=== PATIENT | male | born 1985 | race Caucasian/White ===

== ENCOUNTER 2016-06-15 13:03 | Emergency (ER) | payer OTHER ==
[2016-06-15 13:03] VITALS: BP 150/100; PULSE 117; RESP 22; O2SAT 97
[~2016-06-15 13:03] MED LIST: HYDR-4003 PO; NPR500T PO; VALA100026 PO
[2016-06-15] MEDS ORDERED: Succinylcholine Chloride 20 mg/mL 5 mL Inj ONE (13:04)
[2016-06-15] MEDS ORDERED: Propofol 10,000 mCg/mL 20 mL Inj ONE (13:04)
[2016-06-15] MEDS ORDERED: Atropine 1 mg/10 mL (Code) Syringe ONE (13:04)
[2016-06-15] MEDS ORDERED: 0.9% Sodium Chloride 1,000 ML IV ONE (13:07)
--- NOTE | 2016-06-15 13:07 | ED.REPORT ---
HPI-Seizure Date of Service Jun 15, 2016 ED Provider: Omkar Reyna DO Patient is a 31 year old male with a history of seizures and who is known to be medication non-compliant presents to the ED via EMS s/p having 2 witnessed seizures at home. Since EMS responded, he had not awoken. He arrived in status with sinus tachycardia with a rate of 125. He was given 5mg versed IV by EMS at 1255. He has been intubated before similar symptoms. He is known to use THC to self medicate and has not taken medication for his seizures in several years. His last seizure before today was several years ago. Family reports that all morning he was saying he doesn't feel right and was very nauseous. His first seizure was at 1150 am and he woke up briefly before having another seizure at 1218 pm. He hit his head during his first seizure. Nursing Notes Stated Complaint: SEIZURES Chief Complaint: Seizure Nursing Notes Reviewed: Yes Allergies: Coded Allergies: No Known Allergies (Verified , 10/10/15) Scheduled Valacyclovir (Valacyclovir) 1,000 Mg Tablet 1,000 MG PO TID Scheduled PRN Hydrocodone-Acetaminophen 5-325 mg (Hydrocodone-Acetaminophen 5-325 mg) 1 Each Tablet 1-2 TABLET PO QID PRN PRN For Pain Naproxen (Naproxen) 500 Mg Tab 500 MG PO BID PRN PRN For Pain General Time Seen by Provider: 13:04 Chief Complaint Chief Complaint: Seizure, generalized Hx Obtained From: Other family..., EMS Unable to Obtain Hx: Patient condition Arrived By: Ambulance Similar Sx Previous: Yes Past Medical History Past Medical History Notes: Medication noncompliant Past Medical History Seizures- developed as an adult Past Surgical History Dental surgery Smoking History Current Every Day Smoker Social History Alcohol Use: Denies alcohol use Drug Use: Denies drug use, THC Ambulatory Status Independent Review of Systems Unable to Obtain ROS Patient condition Physical Exam Initial Vital Signs Vital Signs (First) Date Time Temp Pulse Resp B/P Pulse Ox O2 Delivery O2 Flow Rate FiO2 06/15/16 13:03 36.7 117 22 150/100 97 Nasal Cannula 2 Initial VS: Reviewed, Vital signs abnormal Extremities: No swelling Skin: Warm, Dry Alertness: Positive: Unresponsive Neck: Atraumatic Respiratory / Chest: Atraumatic tachypneic Heart Rate / Rhythm: Positive: Tachycardia Mental Status: Positive: Unresponsive No response to painful stimuli GCS 3 Head / Eyes: Normocephalic Fixed pupils with left lateral gaze Jaw locked upon arrival. Back: Atraumatic Interpretation & Diagnostics Lab Results Interpretation Result Diagram: 06/15/16 1318 06/15/16 1318 Test 06/15/16 13:18 06/15/16 14:16 White Blood Count 17.4th/mm3 (3.8-10.1) Red Blood Count 5.19mil/mm3 (4.40-5.80) Hemoglobin 16.1g/dL (13.8-17.2) Hematocrit 49.5% (41.0-50.0) Mean Corpuscular Volume 95.4fL (81-100) Mean Corpuscular Hemoglobin 31.0pg (27.0-35.0) Mean Corpuscular Hemoglobin Concent 32.5% (32.0-37.0) Red Cell Distribution Width 12.0% (12.3-15.4) Platelet Count 400bil/L (150-400) Neutrophils (%) (Auto) 45.1% (40-74) Lymphocytes (%) (Auto) 38.7% (14-46) Monocytes (%) (Auto) 11.0% (4-12) Eosinophils (%) (Auto) 2.9% (0-5) Basophils (%) (Auto) 0.9% (0-3) Sodium Level 139mEq/L (134-144) Potassium Level 4.1mEq/L (3.5-5.2) Chloride Level 94mEq/L (97-108) Carbon Dioxide Level 6mmol/L (18-29) Blood Urea Nitrogen 11mg/dL (6-20) Creatinine 1.00mg/dL (0.76-1.27) Estimat Glomerular Filtration Rate 93mL/min (>59) Glucose Level 176mg/dL (60-99) Calcium Level 9.7mg/dL (8.5-10.1) Total Bilirubin 1.0mg/dL (0.0-1.2) Aspartate Amino Transf (AST/SGOT) 34U/L (0-50) Alanine Aminotransferase (ALT/SGPT) 19U/L (0-44) Alkaline Phosphatase 66U/L (25-150) Total Protein 7.6g/dL (6.4-8.4) Albumin 5.0g/dL (3.4-5.0) Hold Stein Top Tube Received (Received) Alcohol, Quantitative < 10mg/dL (0-10) Hold Urine Received (Received) Lab Results Interpretation: urine tox: positve for benzodiazepines, marijuana, and oxycodone. ECG Interpretation ECG Interpretation: Sinus rate 90 Left axis deviaton Time: 14:39 Interpreted by: ED physician Rhythm Strip Interpretation : Rhythm Strip Interpretation: Sinus tachycardia rate 125 Time: 13:14 Rhythm Strip Interpretation: Interpreted by me, Sinus tachycardia ABG Interpretation ABG Interpretation: pH 7.310 pCO2 44 pO2 176.0 cHCO3- 21.3 cBase -4.4 Exam Performed by: Allied health pract Exam Interpreted by: ED physician X-Ray Chest Interpretation Chest Xray Interpretation: IMPRESSION: Endotracheal tube at the thoracic inlet as above. NG tube with distal sidehole the gastroesophageal junction as above. Dictated by: Vesta Pineda M.D. on 06/15/2016 at 13:38 Approved by: Vesta Pineda M.D. on 06/15/2016 at 13:39 View: Portable, 1 view Interpretation / Wet Read by: Interpret - Radiologist Chest Xray Interpretation: IMPRESSION: Advanced endotracheal tube. Unchanged NG tube. No acute pulmonary findings. Dictated by: Vesta Pineda M.D. on 06/15/2016 at 14:10 Approved by: Vesta Pineda M.D. on 06/15/2016 at 14:10 View: Portable, 1 view Interpretation / Wet Read by: Interpret - Radiologist Procedures Intubation Intubation Procedure: intubation done by receiving barn custodian under my direct supervison Tube was initially at 22cm and advanced to 25 Time: 13:15 Procedure Performed by: Allied health pract Consent / Setup / Site Prep: No consent - emergent, Time-out performed, Oxygen administered, Pulse oximeter applied, monitoring analyst applied, Hand hygiene observed Patient Position: Sniff position Blade / ET Tube / Route: Route: oral Procedural Sedation/Analgesia: Sedation: Propofol Neuromuscular Agent: Succinylcholine ET Confirmation: Direct visualization, BS equal Secured / Marked: ET tube device, Tube marked at ___ cm (25) Complications: None Post-Procedure: Condition improved, Tolerated procedure well, Patient stable Re-Eval/Medical Decision Med Decision/Clinical Course Status epilepticus upon arrival. Patient has been given multiple doses of IV Versed, Ativan, and sedated with propofol and succinylcholine, IV fosphenytoin 1400 mg, IV Keppra 1500 mg, propofol drip for sedation, Tavo-Synephrine for blood pressure management, normal saline 1500 mL. Re-Evaluation/Progress #1: Time of Eval: 13:31 Re-Evaluation/Progress Note: pupils fixed and unreactive but midline rhythmic fine seizure activity in all 4 extremities. Re-Evaluation/Progress #2: Time of Eval: 13:35 )( Re-Eval Neurologic Exam: Unresponsive Re-Evaluation/Progress Note: Discussed patient's history with patient's family. Re-Evaluation/Progress #3: Time of Eval: 13:47 )( Re-Eval Neurologic Exam: Unresponsive Re-Evaluation/Progress Note: Still having rhythmic fine seizure activity Re-Evaluation/Progress #4: Time of Eval: 14:00 )( Re-Eval Neurologic Exam: Unresponsive Re-Evaluation/Progress Note: No visual signs on seizing. Family reports that every once in awhile he takes oxycodone that he was prescribed when he was seen for stress headaches. "He was also prescribed a benzo with caffeine in it". They also report that in the past when he comes out of seizures he is very agitated. Re-Evaluation/Progress #5: Time of Eval: 14:16 )( Re-Eval Neurologic Exam: Unresponsive Re-Evaluation/Progress Note: Rechecked patient. Pressure is still around 88. Re-Evaluation/Progress #6: Time of Eval: 14:39 )( Re-Eval Neurologic Exam: Unresponsive Re-Evaluation/Progress Note: Informed family of plan to transfer to [facility] neurolog[facility]. Patient's family understands and agrees with plan. All questions addressed at this time. Consultation : Consulted With: Neurology Call Returned at: 13:31 Note: Dr. Weiner and [facility] neurology accepts patient transfer. Counseled Regarding: Diagnosis, Lab results, Need for transfer Discharge & Departure Impression: Primary Impression: Status epilepticus Disposition: Transfer, Acute Care Facility Receiving Hospital: [facility] Transfer Accepted: Yes Transfer Accepted at: 14:31 Transfer Reason: Higher level of care Spoke with: Specialty physician Patient Status: Stable for transfer Patient Informed: Unable Referrals: Juan A Rogers DO (PCP) Crit Care Except Billable Proc Time Spent: 75-104 minutes Services Performed: Patient management by me, Time spent at bedside, Reviewing test results Critical Care Notes: See MDM Scribe Attestation Portions of this note were transcribed by Pablo Fields. I, Dr. Reyna personally performed the history, physical exam and medical decision-making; I reviewed and confirmed the accuracy of the information in the transcribed note. Signed by: Pablo Fields 06/15/16, 3259 copies to: Juan A Rogers Timothy S DO Jun 15, 2016 13:07 PABLO FIELDS Jun 15, 2016 13:54
[2016-06-15] MEDS ORDERED: Fosphenytoin Inj 100 mgPE in 0.9% Sodium Chloride 50 ML IV ONE (13:10)
[2016-06-15 13:16] VITALS: PULSE 156; RESP 23; O2SAT 99
[2016-06-15 13:22] VITALS: BP 137/93; PULSE 78; RESP 11; O2SAT 100
[2016-06-15] MEDS ORDERED: Succinylcholine Chloride 20 mg/mL 5 mL Inj IVPUSH ONE (13:25)
[2016-06-15] MEDS ORDERED: FOSPHENYTOIN IV ONE ×2 (13:25→13:40)
[2016-06-15] MEDS ORDERED: Propofol 10 mg/mL 20 mL Inj IVPUSH ONE (13:25)
[2016-06-15] MEDS ORDERED: SODIUM CHLORIDE 0.9% IV ONE ×2 (13:25→13:40)
[2016-06-15] MEDS ORDERED: MGPE IV ONE ×2 (13:25→13:40)
[2016-06-15 13:29] LABS: BASOPHILS % (AUTO) 0.9 % (0-3); EOSINOPHILS % (AUTO) 2.9 % (0-5); Mean Corpuscular Volume 95.4 fL (81-100); NEUTROPHILS % (AUTO) 45.1 % (40-74); Platelet Count 400 bil/L (150-400)
[2016-06-15] MEDS ORDERED: Midazolam 5 mg/mL 10 mL Inj IV PRN (13:40)
--- NOTE | 2016-06-15 13:41 | DRSVH ---
PROCEDURE: X-RAY CHEST ONE VIEW, PORTABLE ([id number]) INDICATIONS: post intubation TECHNIQUE: One view of the chest was acquired. COMPARISON: None. FINDINGS: Surgical changes and devices: The endotracheal tube is 8.6 cm above the david. An NG tube is present , the distal sidehole of which is likely at the gastroesophageal junction. Lungs and pleura: No pleural effusions or pneumothorax. Lungs are clear. Mediastinum: Mediastinal contours appear normal. Heart size is normal. Bones and chest wall: No suspicious bony lesions. Overlying soft tissues appear unremarkable. IMPRESSION: Endotracheal tube at the thoracic inlet as above. NG tube with distal sidehole the gastro esophageal junction as above. Dictated by: Vesta Pineda M.D. on 06/15/2016 at 13:38 Approved by: Vesta Pineda M.D. on 06/15/2016 at 13:39
[2016-06-15] MEDS: Propofol Inj 1,000,000 MCG in IV Premix 1 EACH IV SCH ×4 (13:46→15:30)
[2016-06-15] MEDS ORDERED: levETIRAcetam Inj 1,500 MG in Dextrose 5% 100 ML IV ONE (13:50)
[2016-06-15] MEDS ORDERED: 0.9% Sodium Chloride 1,000 ML IV SCH (14:00)
[2016-06-15 14:02] VITALS: BP 85/44; PULSE 106; RESP 22; O2SAT 100
--- NOTE | 2016-06-15 14:12 | DRSVH ---
PROCEDURE: X-RAY CHEST ONE VIEW, PORTABLE ([id number]) INDICATIONS: evaluate Endo Tracheal Tube placement TECHNIQUE: One view of the chest was acquired. COMPARISON: None. FINDINGS: Surgical changes and devices: The endotracheal tube is 4.7 cm above the david. As before, the NG tub e distal side hole is at the gastroesophageal junction. Lungs and pleura: No pleural effusions or pneumothorax. Lungs are clear. Mediastinum: Mediastinal contours appear normal. Heart size is normal. Bones and chest wall: No suspicious bony lesions. Overlying soft tissues appear unremarkable. IMPRESSION: Advanced endotracheal tube. Unchanged NG tube. No acute pulmonary findings. Dictated by: Vesta Pineda M.D. on 06/15/2016 at 14:10 Approved by: Vesta Pineda M.D. on 06/15/2016 at 14:10
[2016-06-15 14:37] VITALS: BP 81/49; PULSE 93; RESP 27; O2SAT 100
[2016-06-15] MEDS: Phenylephrine Inj 20,000 MCG in 0.9% Sodium Chloride 248 ML IV SCH ×3 (15:05→15:30)
--- NOTE | 2016-06-15 15:05 | ABG ---
DateTimeAnalyzed 15:00:00 -_ pH ____7.310 - 7.350 7.450 pCO2 ___43.5__ -mmHg 35.0 45.0 pO2 176 -mmHg 69.0 116 HCO3- ___21.3__ -mmol/L 22.0 26.0 ABE ___-4.4__ -mmol/L -2.0 2.0 tHb ___13.6__ -g/dL O2Hb ___96.8__ -% COHb ____1.4__ -% MetHb ____0.9__ -% sO2 ___99.1__ -% 25.0 FIO2 ___50.0__ -% PEEP ____5.0__ -cmH2O Set_RR ___16.0__ -b/min Vt __540.0__ -L Drawn By NB - Date/Time Notified____ 15:05:00 -_ Oxygen Device 1 VENTILATOR - Notified By JJ - Notified Whom DR OKELLEY - B 770 -mmHg tO2 ___18.8__ -Vol% Artemio test N/A -
[2016-06-15] MEDS ORDERED: 0.9% Sodium Chloride 500 ML IV ONE (15:10)
--- NOTE | 2016-06-15 15:52 | DRSVH ---
PROCEDURE: CT BRAIN WITHOUT CONTRAST ([id number]) INDICATIONS: seizures TECHNIQUE: Noncontrast 4.5 mm thick angled axial sections acquired from the foramen magnum to the vertex, with c oronal reformats. COMPARISON: None. FINDINGS: Image quality: Excellent. CSF spaces: Basal cisterns are patent. No extra-axial fluid collections. Ventricles are normal in size and shape. Brain: No midline shift. No intracranial masses or hemorrhage. Figueroa-white matter interface is norm al. Skull and face: Calvarium and visualized facial bones are intact, without suspicious lesions. Sinuses: Visualized sinuses and mastoids are clear. IMPRESSION: 1. No acute intracranial findings. Dictated by: Vesta Pineda M.D. on 06/15/2016 at 15:49 Approved by: Vesta Pineda M.D. on 06/15/2016 at 15:50
[2016-06-15 15:53] VITALS: BP 109/74; PULSE 72; RESP 16; O2SAT 100
--- NOTE | 2016-06-15 17:20 | NUR ---
pt taken to CT via [place] and resuscitaion bag times two for head CT. Trips were done on 100% o2 and w ehad no adverses events or incidents. pt was returned to ER and replaced back on the servo at his previous settings
== END 2016-06-15 16:24 | disposition short-term general hospital (02) ==
LOC: SED 13:03
DX: G40.901 Epilepsy, unspecified, not intractable, with status epilepticus (principal); R40.2430 Glasgow coma scale score 3-8, unspecified time; F17.200 Nicotine dependence, unspecified, uncomplicated; F12.10 Cannabis abuse, uncomplicated
CPT/HCPCS: 31500; 36415; 36620; 51702; 70450; 71010; 80053; 81002; 82375; 82803; 85025; 93005; 94002; 94664; 94799; 96361; 96374; 96375; 99291; 99292; G0480; J0330; J0461; J1953; J2060; J2250; J2370; J7030; J7040; J7050; Q2009

== ENCOUNTER 2016-10-19 02:46 | Emergency (ER) | payer OTHER ==
[2016-10-19] VITALS (10 sets, daily range): BP systolic 106–168; BP diastolic 67–108; PULSE 88–131; RESP 9–35; O2SAT 93–100
[~2016-10-19] VITALS: Ht 175.3 cm; Wt 70.0 kg
--- NOTE | 2016-10-19 02:55 | ED.REPORT ---
HPI-Cardiac Arrest Date of Service Oct 19, 2016 ED Provider: Los Colorado MD Pt is a 31 year old male with a hx of seizures on Coumadin presenting to the ED via EMS intubated post seizure. His woke up to the pt having a seizure just prior to arrival. When medics arrived, the pt was unresponsive for 5 minutes so they did CPR and intubated. Pt was in vfib when medics arrived so they shocked him at 120 J to VSR. Medics gave 4mg Narcan en route. Pt takes oxycodone and arrives with an empty bottle of it. The pt's fiance reports that he takes his opiate medication as prescribed. Pt was admitted with ARDS 2 months ago at [facility]. Nursing Notes Stated Complaint: POST CPR Chief Complaint: Unresponsive Nursing Notes Reviewed: Yes Allergies: Coded Allergies: No Known Allergies (Verified , 10/10/15) General Time Seen by Provider: 02:45 Chief Complaint Cardiac arrest, found dwn Hx Obtained From: Patient, EMS Arrived By: Ambulance Onset Occurred: Just prior to arrival Symptom Duration: Since onset Past Medical History Past Medical History Notes: Medication noncompliant Past Medical History Seizures- developed as an adult Pt admitted with ARDS 2 months ago - on Coumadin Past Surgical History Dental surgery Smoking History Current Every Day Smoker Social History Alcohol Use: Denies alcohol use Drug Use: Denies drug use, THC Ambulatory Status Independent Review of Systems Review of Systems Note: Pt intubated Unable to Obtain ROS Patient condition, Intubated Neurologic: Reports: Change LOC, Seizure, Shaking Physical Exam Initial Vital Signs Vital Signs (First) Date Time Temp Pulse Resp B/P Pulse Ox O2 Delivery O2 Flow Rate FiO2 10/19/16 02:50 110 20 127/92 93 Mechanical Ventilator 10/19/16 06:47 36.2 Initial VS: Reviewed, Vital signs abnormal ENT: Mucous membranes moist, Conjunctiva normal, No scleral icterus Neck: Supple, Non-tender, Full range of motion Extremities: Vascular intact, Neuro intact, No swelling, No tenderness Skin: Warm, Dry, No cyanosis General/Constitutional: Well nourished Completely sedated on ventilator Respiratory / Chest: Breath sounds NL, Breath sounds = bilat Clear to auscultation. Bucking the ventilator a little bit. Cardiovascular: Heart rate NL, Regular rhythm, Heart sounds NL Abdomen: Atraumatic, Soft Head / Eyes: Atraumatic, Normocephalic Pupils small Upper Extremity / MS: Neurologic intact, Vascular intact, No edema Interpretation & Diagnostics Interpretation & Diagnostics: ABG: pH:7.200 pCO2:59 pO2:85.7 cHCO3:22.9 cBase:-5.1 URINE TOX: Positive for marijuana and oxycodone Lab Results Interpretation Result Diagram: 10/19/16 0230 10/19/16 0230 Test 10/19/16 02:30 10/19/16 03:20 10/19/16 03:45 White Blood Count 20.1th/mm3 (3.8-10.1) Red Blood Count 5.06mil/mm3 (4.40-5.80) Hemoglobin 13.5g/dL (13.8-17.2) Hematocrit 41.9% (41.0-50.0) Mean Corpuscular Volume 82.8fL (81-100) Mean Corpuscular Hemoglobin 26.7pg (27.0-35.0) Mean Corpuscular Hemoglobin Concent 32.2% (32.0-37.0) Red Cell Distribution Width 15.3% (12.3-15.4) Platelet Count 455bil/L (150-400) Neutrophils (%) (Auto) 41.5% (40-74) Lymphocytes (%) (Auto) 46.3% (14-46) Monocytes (%) (Auto) 6.8% (4-12) Eosinophils (%) (Auto) 3.6% (0-5) Basophils (%) (Auto) 0.4% (0-3) Prothrombin Time 14.2sec (8.1-12.5) Prothromb Time International Ratio 1.32ratio Sodium Level 137mEq/L (134-144) Potassium Level 3.4mEq/L (3.5-5.2) Chloride Level 94mEq/L (97-108) Carbon Dioxide Level 18mmol/L (18-29) Blood Urea Nitrogen 15mg/dL (6-20) Creatinine 0.88mg/dL (0.76-1.27) Estimat Glomerular Filtration Rate 107mL/min (>59) Glucose Level 310mg/dL (60-99) Calcium Level 9.4mg/dL (8.5-10.1) Magnesium Level 2.4mg/dL (1.6-2.6) Total Bilirubin 0.3mg/dL (0.0-1.2) Aspartate Amino Transf (AST/SGOT) 32U/L (0-50) Alanine Aminotransferase (ALT/SGPT) 23U/L (0-44) Alkaline Phosphatase 76U/L (25-150) Troponin T 0.010ug/L (0.0-0.011) Total Protein 6.8g/dL (6.4-8.4) Albumin 3.7g/dL (3.4-5.0) Alcohols < 10mg/dL (0-10) Urine Color Yellow (YELLOW) Urine Appearance Hazy (CLEAR,HAZY) Urine pH 6.5 (5.0-8.0) Urine Specific [place] 1.012 (1.003-1.035) Urine Protein 100mg/dL (NEG,TRACE) Urine Glucose (UA) >1000mg/dL (NEGATIVE) Urine Ketones Negativemg/dL (NEGATIVE) Urine Occult Blood Small (NEGATIVE) Urine Nitrite Negative (NEGATIVE) Urine Bilirubin Negative (NEGATIVE) Urine Urobilinogen Normalmg/dL (NORMAL) Urine Leukocyte Esterase Negative (NEGATIVE) Urine RBC 11-50/hpf (0-2) Urine WBC 0-5/hpf (0-5) Urine Epithelial Cells Few/hpf (NONE-MOD) Urine Crystals None seen (NONE SEEN) Urine Bacteria None/hpf (NONE-FEW) Urine Hyaline Casts None/lpf (NONE) Urine Granular Casts None seen (NONE SEEN) Urine Waxy Casts None seen (NONE SEEN) Urine Red Blood Cell Casts None seen (NONE SEEN) Urine White Blood Cell Casts None seen (NONE SEEN) Urine Mucus None seen (None Seen) Urine Trichomonas None seen (NONE SEEN) Urine Yeast None (NONE SEEN) Urinalysis Comment Phenytoin (Dilantin) Level 0.8uG/mL (10.0-20.0) Lab Results Interpretation: Elevated white blood count, normal troponin X-Ray Chest Interpretation Chest Xray Interpretation: Scarring/atelectasis vs infiltrate right greater than left all lung ballesteros. No previous chest x ray available since his episode of ARDS for comparison. View: Portable, 1 view Interpretation / Wet Read by: Wet read ED physician CT Head Interpretation CONCLUSION: No acute intracranial abnormality. Left-sided paranasal sinus disease. This report was transmitted to the emergency room at 10/19/2016 - 3:17:16 AM PDT. Study: Head CT no contrast Interpretation / Wet Read by: Interpret - Radiologist Re-Eval/Medical Decision Med Decision/Clinical Course 31-year-old male with a history of seizure disorder and recent ARDS secondary to complications of status epilepticus. Tonight he had a seizure while sleeping and it awakened his . She called 911. She noticed that he was not breathing well and started CPR. Upon arrival of the paramedics he was found to have a V. fib arrest and was shocked times one back to sinus rhythm. He was intubated. He was bucking the tube so was given ketamine and rocuronium. Upon arrival here he was obtunded from the sedative medications. He was intubated, tube placement was confirmed is adequate. His chest x-ray showed bilateral scarring versus atelectasis versus infiltrate in both lung ballesteros but mostly on the right side. I have no x-ray taken after his episode of ARDS for comparison. The patient's sedation gradually wore off and he did seem to be in seizure with rhythmical jerking movements of the legs. His case was discussed with Dr. Carr and Dr. Lambert. The patient will be transferred to [facility] for the availability of a neurological intensive care unit. Re-Evaluation/Progress #1: Time of Eval: 03:14 Patient Status: Condition improved Re-Evaluation/Progress Note: Discussed history with the pt's fiance Re-Evaluation/Progress #2: Time of Eval: 04:13 Patient Status: Condition improved Re-Evaluation/Progress Note: Pt starting to become responsive. Re-Evaluation/Progress #3: Time of Eval: 04:38 Patient Status: Condition improved Re-Evaluation/Progress Note: Pt looks like he is still seizing. He will go to [facility]. Consultation #1: Referral / Consult Name: Caleb Fontanez MD Consulted With: Cardiology Call Returned at: 03:11 Construction Project Assistant: Agrees with eval, Agrees with plan Note: Agrees with plan to cool the patient. Consultation #2: Referral / Consult Name: Rodríguez Lambert MD Consulted With: Hospitalist Call Returned at: 03:51 Note: Call neurology. Consultation #3: Referral / Consult Name: Erika Thompson MD Consulted With: Neurology Call Returned at: 04:06 Note: Let the ketamine wear off and then re-evaluate. Consultation #4: Referral / Consult Name: Lakhwinder Mensah MD Consulted With: Neurology Call Returned at: 05:23 Note: Recommended additional Depacon and his seizure medication. They will accept he just has to finish making arrangements. Dr. Aj is the accepting doctor. Counseled Regarding: Diagnosis, Lab results, Need for follow-up, When/why to return to ED Discharge & Departure Impression: Primary Impression: Ventricular fibrillation Additional Impression: Status epilepticus Disposition: Transfer, Acute Care Facility All VS Reviewed: Yes Condition: Improved Referrals: NOPCP (PCP) Crit Care Except Billable Proc Time Spent: 30-74 minutes (65 min) Services Performed: Patient management by me, Time spent at bedside, Reviewing test results, Reviewing imaging, Discussing patient care, Documentation in record, Time with fam/surrogate Critical Care Notes: Intubated pateint following V-fib arrest. likely in status epilepticus, transferred to the neuro ICU at [facility]. Laibe Attestation Portions of this note were transcribed by Maia Haque. I, Dr. Colorado personally performed the history, physical exam and medical decision-making; I reviewed and confirmed the accuracy of the information in the transcribed note. Signed by: Jd Muñiz, 10/19/2016 and 0640. Los Colorado MD Oct 19, 2016 02:55 MAIA HAQUE Oct 19, 2016 03:02
[2016-10-19 03:03] LABS: BASOPHILS % (AUTO) 0.4 % (0-3); EOSINOPHILS % (AUTO) 3.6 % (0-5); MONOCYTES % (AUTO) 6.8 % (4-12); Mean Corpuscular Hemoglobin 26.7 pg (27.0-35.0); Mean Corpuscular Volume 82.8 fL (81-100); NEUTROPHILS % (AUTO) 41.5 % (40-74); Platelet Count 455 bil/L (150-400)
--- NOTE | 2016-10-19 03:14 | ABG ---
DateTimeAnalyzed 03:07:44 -_ pH ____7.200 - 7.350 7.450 pCO2 ___58.6__ -mmHg 35.0 45.0 pO2 ___85.7__ -mmHg 69.0 116 HCO3- ___22.9__ -mmol/L 22.0 26.0 ABE ___-5.1__ -mmol/L tHb ___13.2__ -g/dL O2Hb ___90.5__ -% COHb ____3.8__ -% 1.5 MetHb ____0.2__ -% sO2 ___94.2__ -% FIO2 __100.0__ -% PEEP ____5.0__ -cmH2O Set_RR 20 -b/min Vt __500.0__ -L Drawn By MK - Oxygen Device 1 VENTILATOR - Notified Whom Dr Leibrand - K+ ____3.2__ -mmol/L tO2 ___16.9__ -Vol% Artemio test _Positive -
[2016-10-19 03:22] LABS: INR 1.32 ratio
[2016-10-19 03:50] LABS: APPEARANCE,URINE HAZY (CLEAR,HAZY); COLOR,URINE YELLOW (YELLOW); OCCULT BLOOD,URINE SMALL (NEGATIVE); PH,URINE 6.5 (5.0-8.0); UROBILINOGEN,URINE NORMAL (NORMAL)
[2016-10-19] MEDS ORDERED: Propofol 10,000 mCg/mL 100 mL Inj ONE ×2 (04:34→06:59)
[2016-10-19] MEDS ORDERED: Propofol Inj 1,000,000 MCG in IV Premix 1 EACH IV SCH ×2 (04:38→07:05)
[2016-10-19] MEDS ORDERED: levETIRAcetam Inj 1,000 MG in IV Premix 1 EACH IV ONE (05:05)
[2016-10-19] MEDS ORDERED: DEXTROSE 5% IV ONE (05:35)
[2016-10-19] MEDS ORDERED: VALPROATE SODIUM IV ONE (05:35)
--- NOTE | 2016-10-19 08:08 | DRSVH ---
PROCEDURE: X-RAY CHEST ONE VIEW, PORTABLE ([id number]) INDICATIONS: SEIZURES, INTUBATED TECHNIQUE: One view of the chest was acquired. COMPARISON: None. FINDINGS: Surgical changes and devices: There is an endotracheal tube that ends 7 cm above the david in this s upine portable chest. There is some volume loss in the right lung and patchy airspace disease. The le ft lung is slightly hyperinflated. Lungs and pleura: No pleural effusions or pneumothorax. Lungs are clear. Mediastinum: Mediastinal contours appear normal. Heart size is normal. Bones and chest wall: No suspicious bony lesions. Overlying soft tissues appear unremarkable. IMPRESSION: Pneumonia and atelectasis are occurring in the right lung. Left lung is clear. Endotrache al tube on this AP view was 6.9 cm above the david. Dictated by: Darren Harrison M.D. on 10/19/2016 at 8:05 Approved by: Darren Harrison M.D. on 10/19/2016 at 8:06
--- NOTE | 2016-10-19 08:12 | DRSVH ---
PROCEDURE: CT BRAIN WITHOUT CONTRAST ([id number]) INDICATIONS: SEIZURES, INTUBATED TECHNIQUE: Noncontrast 4.5 mm thick angled axial sections acquired from the foramen magnum to the vertex, with c oronal reformats. COMPARISON: [facility], CT, CT BRAIN WO CON, 06/15/2016, 14:27. FINDINGS: Image quality: Good CSF spaces: Basal cisterns are patent. No extra-axial fluid collections. Ventricles are normal in size and shape. Brain: No midline shift. No intracranial masses or hemorrhage. Figueroa-white matter interface is norm al. Skull and face: Calvarium and visualized facial bones are intact, without suspicious lesions. Sinuses: Visualized sinuses and mastoids show left ethmoid and maxillary sinus disease on the lowest 2 cuts. IMPRESSION: No intracranial abnormality identified. Left maxillary and ethmoid sinus disease are note d. Dictated by: Darren Harrison M.D. on 10/19/2016 at 8:09 this report corresponds to the findings of t he preliminary NSR report. Approved by: Darren Harrison M.D. on 10/19/2016 at 8:10
== END 2016-10-19 07:25 | disposition short-term general hospital (02) ==
LOC: SED 02:46
DX: I49.01 Ventricular fibrillation (principal); G40.901 Epilepsy, unspecified, not intractable, with status epilepticus; F17.200 Nicotine dependence, unspecified, uncomplicated; Z79.01 Long term (current) use of anticoagulants; Z79.891 Long term (current) use of opiate analgesic
CPT/HCPCS: 36415; 51702; 70450; 71010; 80053; 80185; 80299; 81001; 81002; 83735; 84484; 85025; 85610; 93005; 94002; 94799; 96374; 96375; 99291; G0480; J1953; J2250